=== PATIENT | female | born 1955 | race Caucasian/White ===

== ENCOUNTER 2018-04-21 14:55 | Emergency (ER) | payer SELFPAY ==
[2018-04-21 15:02] VITALS: BP 133/70; PULSE 75; TEMP 98.7; BMI 30.8
--- NOTE | 2018-04-21 15:11 | PDOC ---
History of Present Illness - General Chief Complaint: Chest Pain Stated Complaint: palpitations Time Seen by Provider: 04/21/18 15:11 - History of Present Illness Initial Comments: 04/21/18 16:01 The patient is a 62 year old female with a PMH of [place] in (2000, hospitalized in [facility], A.Fib, on Pradaxa, HTN, hypothyroidism, DMII, GERD, that presented to ED complaining of palpitations that are present for years but got worse in the past month. Earlier today it lasted about 30 min. Every time she experiences palpitations, she has to sit down and take deep breaths. The patient denies chest pain, SOB, lightheadedness, LOC. She visited her mixer and blender 2 weeks ago, had ECHO done and was told that it is normal. She was also told in the past that her EKG is abnormal. The patient is scheduled for stress test in july 2018. She denies fever, chills, abdominal pain, nausea, vomiting, dysuria. Mill Attendant; Dr Vernon Jackson [phone] PCP:Javier Enciso Past History - Past Medical History Allergies/Adverse Reactions: Allergies Allergy/AdvReac Type Severity Reaction Status Date / Time No Known Allergies Allergy Verified 04/21/18 15:03 Home Medications: Ambulatory Orders Dabigatran Etexilate Mesylate [Pradaxa -] 150 mg PO BID 04/21/18 Levothyroxine [Synthroid -] 50 mcg PO DAILY 04/21/18 Metformin HCl [Metformin HCl ER] 1,000 mg PO DAILY 04/21/18 Cardiac Disorders: Yes ([place] x 2000, AFib) COPD: No Diabetes: Yes GI Disorders: Yes (GERD) HTN: Yes Thyroid Disease: Yes - Surgical History Other Surgical History: 04/21/18 16:13 oophorectomy - Suicide/Smoking/Psychosocial Hx Smoking History: Never smoked Have you smoked in the past 12 months: No Information on smoking cessation initiated: No Hx Alcohol Use: No Drug/Substance Use Hx: No Cardiac Specific PMH - Complaint Specific PMHX Cardiac Arrhythmia: Yes Cardiac Stent: No GERD: Yes Myocardial Infarction: Yes Pacemaker: No Pulmonary Embolus: No Valvular Heart Disease: No Review of Systems - Review of Systems Able to Perform ROS?: Yes Is the patient limited Marshallese proficient: Yes Constitutional: No: Symptoms Reported HEENTM: No: Symptoms Reported Respiratory: Yes: See HPI, Cough. No: Symptoms reported, Shortness of Breath, Wheezing, Productive cough Cardiac (ROS): Yes: Symptoms Reported, Palpitations. No: Chest Pain, Edema, Irregular Heart Rate, Lightheadedness, Syncope ABD/GI: No: Symptoms Reported, Constipated, Diarrhea, Nausea, Vomiting : No: Symptoms Reported Musculoskeletal: No: Symptoms Reported Endocrine: No: Symptoms Reported *Physical Exam - Vital Signs Last Vital Signs Temp Pulse Resp BP Pulse Ox 98.7 F 75 16 133/70 100 04/21/18 14:58 04/21/18 14:58 04/21/18 14:58 04/21/18 14:58 04/21/18 14:58 - Physical Exam General Appearance: Yes: Nourished, Appropriately Dressed HEENT: positive: EOMI, LILY, Pharynx Normal Respiratory/Chest: positive: Lungs Clear, Normal Breath Sounds. negative: Crackles, Rales, Rhonchi, Wheezing Cardiovascular: positive: Regular Rhythm, Regular Rate, S1, S2. negative: Edema , JVD, Murmur, Irregularly Irregular Gastrointestinal/Abdominal: positive: Normal Bowel Sounds. 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 NML intact, Fully Oriented, Normal Mood/Affect Heart Score/ECG Review - History History: Slightly suspicious - Electrocardiogram EKG: Non specific repolarization disturbance - Age Age: 45-65 - Risk Factors Risk Factors Heart Score: Yes Hx Hypertension, Yes Hx Diabetes, Yes Hx Obesity Based on the list above the patient has:: >/=3 risk factors or Hx atherosclerotic disease - Troponin Troponin: </= normal limit - Score Heart Score - Total: 4 - ECG Intrepretation Rhythm: Regular Rhythm - Strasburg Strasburg: Left Strasburg Deviation - P and CO Delta Wave(s) Present: No WPW: No - QRS Widened: LBBB Q Wave Present: Yes - ST and T Non Specific ST-T Wave changes: Yes - ECG Impressions Normal ECG: No Moderate Sedation - Procedure Monitoring Vital Signs: Procedure Monitoring Vital Signs Temperature 98.7 F 04/21/18 14:58 Pulse Rate 75 04/21/18 14:58 Respiratory Rate 16 04/21/18 14:58 Blood Pressure 133/70 04/21/18 14:58 O2 Sat by Pulse Oximetry (%) 100 04/21/18 14:58 ED Treatment Course - LABORATORY CBC & Chemistry Diagram: 04/21/18 16:34 04/21/18 16:34 - ADDITIONAL ORDERS Additional order review: Laboratory Results 04/21/18 04/21/18 04/21/18 16:34 16:34 16:34 Sodium 140 Potassium 4.4 Chloride 103 Carbon Dioxide 30 Anion Gap 7 L BUN 15 Creatinine 0.9 Creat Clearance w eGFR > 60 Random Glucose 131 H Calcium 8.4 L Magnesium 1.8 Total Bilirubin 0.3 AST 33 ALT 44 Alkaline Phosphatase 98 Creatine Kinase 34 Troponin I < 0.02 Total Protein 7.3 Albumin 3.3 L 04/21/18 16:34 RBC 4.32 MCV 88.1 MCHC 35.2 RDW 13.0 MPV 10.3 Neutrophils % 66.0 Lymphocytes % 24.4 Monocytes % 7.6 Eosinophils % 0.9 Basophils % 1.1 Medical Decision Making - Medical Decision Making 04/21/18 16:26 The patient is a 62 year old female with cardiac history that presents with palpitations. We ordered ekg, cbc, cmp, cardiac profile, will follow. 04/21/18 17:29 Not able to get in touch with patient's mixer and blender. Troponin negative. 04/21/18 17:59 Called mixer and blender office again, no answer. The patient is going to be discharged home with recommendation to follow up with her Mill Attendant. *DC/Admit/Observation/Transfer Diagnosis at time of Disposition: Palpitation - Discharge Dispostion Disposition: HOME Condition at time of disposition: Good Decision to Admit order: No - Referrals - Patient Instructions Printed Discharge Instructions: DI for Palpitations Additional Instructions: You were evaluated in Emergency Room for palpitations. We recommend that you will visit your mixer and blender in next few days. If you have chest pain, lightheadedness, shortness of breath, dizziness, or worsening of any of your symptoms, come back to Emergency Room as soon as possible. - Post Discharge Activity
--- NOTE | 2018-04-21 15:28 | PDOC ---
Attending Attestation - Resident Resident Name: JavidJudy - ED Attending Attestation I have performed the following: I have examined & evaluated the patient, The case was reviewed & discussed with the resident, I agree w/resident's findings & plan, Exceptions are as noted - HPI HPI: [address] 2000, afib, HTN, hypothyroid, DM2, GERD presents with palpitations. She has had them for years, however, in the past month they have worsened, and for the past day they felt more intense than usual. Denies cp, SOB , lightheadedness, leg swelling. Last cardiology visit 2 weeks ago. - Physicial Exam PE: GENERAL: Awake, alert, and fully oriented, in no acute distress HEAD: No signs of trauma EYES: PERRLA, EOMI, sclera anicteric, conjunctiva clear ENT: Auricles normal inspection, hearing grossly normal, nares patent, oropharynx clear without exudates. Moist mucosa NECK: Normal ROM, supple, no lymphadenopathy, JVD, or masses LUNGS: Breath sounds equal, clear to auscultation bilaterally. No wheezes, and no crackles HEART: Regular rate and rhythm, normal S1 and S2, no murmurs, rubs or gallops ABDOMEN: Soft, nontender, normoactive bowel sounds. No guarding, no rebound. No masses EXTREMITIES: Normal range of motion, no edema. No clubbing or cyanosis. No cords, erythema, or tenderness NEUROLOGICAL: Cranial nerves II through XII grossly intact. Normal speech, normal gait SKIN: Warm, Dry, normal turgor, no rashes or lesions noted. - Medical Decision Making Pt with prior history of CT, now with palpitations that are worse than her usual. 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
[2018-04-21 16:58] LABS: BASO % 1.1 % (0-2.0); EOS % 0.9 % (0-4.5); HEMOGLOBIN 13.4 GM/dL (10.7-15.3); LYMPH % 24.4 % (8-40); MCHC 35.2 g/dl (32.0-36.0); MEAN CELL VOLUME 88.1 fl (80-96); MEAN PLT VOLUME 10.3 fl (7.5-11.1); MONO % 7.6 % (3.8-10.2); PLATELET COUNT 289 K/MM3 (134-434); RBC 4.32 M/mm3 (3.60-5.2); WHITE BLOOD COUNT 7.7 K/mm3 (4.0-10.0)
[2018-04-21 17:34] LABS: ALBUMIN 3.3 g/dl (3.4-5.0); ALK PHOS 98 U/L (45-117); ANION GAP 7 MMOL/L (8-16); BILIRUBIN,TOTAL 0.3 mg/dL (0.2-1); BLOOD UREA NITROGEN 15 mg/dL (7-18); CALCIUM 8.4 mg/dL (8.5-10.1); CHLORIDE 103 mmol/L (98-107); CO2 30 mmol/L (21-32); CREATININE 0.9 mg/dL (0.55-1.3); GLUCOSE,RANDOM 131 mg/dL (74-106); POTASSIUM 4.4 mmol/L (3.5-5.1); SGOT/AST 33 U/L (15-37); SGPT/ALT 44 U/L (13-61); SODIUM 140 mmol/L (136-145); TOT PROT 7.3 g/dl (6.4-8.2)
--- NOTE | 2018-04-22 15:21 | EKG ---
Test Reason : Blood Pressure : / mmHG Vent. Rate : 070 BPM Atrial Rate : 070 BPM P-R Int : 134 ms QRS Dur : 126 ms QT Int : 410 ms P-R-T Axes : 016 -66 073 degrees QTc Int : 442 ms NORMAL SINUS RHYTHM LEFT AXIS DEVIATION LEFT BUNDLE BRANCH BLOCK ABNORMAL ECG NO PREVIOUS ECGS AVAILABLE Confirmed by CORINNA ANN, ZACK ([id number]) on 04/22/2018 3:21:13 PM Referred By: Confirmed By:ZACK WEINSTEIN MD
== END 2018-04-21 18:52 | disposition home or self-care (01) ==
LOC: JER 14:55
DX: R00.2 Palpitations (principal); I48.91 Unspecified atrial fibrillation; I10 Essential (primary) hypertension; E03.9 Hypothyroidism, unspecified; E11.9 Type 2 diabetes mellitus without complications; K21.9 Gastro-esophageal reflux disease without esophagitis; I25.2 Old myocardial infarction; E07.9 Disorder of thyroid, unspecified
CPT/HCPCS: 36415; 71045-TC-FY; 80053; 82550; 83735; 84484; 85025; 93005; 93010; 99283-25